=== PATIENT | female | born 1975 | race Two or more races ===

== ENCOUNTER 2025-03-08 20:55 | Emergency (ER) | payer MEDICAID ==
[~2025-03-08] VITALS: Ht 162.6 cm; Wt 63.5 kg
[2025-03-08] MEDS ORDERED: HYDROCODONE/APAP 5/325MG TABLET ONE (22:22)
[2025-03-08] MEDS: HYDROCODONE/APAP 5/325MG TABLET PO ONE (22:23)
[2025-03-08 23:47] VITALS: BP 118/74; TEMP 98; O2SAT 99
== END 2025-03-08 23:47 | disposition home or self-care (01) ==
LOC: ER 21:04
DX: S39.012A Strain of muscle, fascia and tendon of lower back, initial encounter (principal); M79.7 Fibromyalgia; Z91.041 Radiographic dye allergy status; V89.2XXA Person injured in unspecified motor-vehicle accident, traffic, initial encounter; Y93.89 Activity, other specified; Y92.410 Unspecified street and highway as the place of occurrence of the external cause; Y99.8 Other external cause status
CPT/HCPCS: 72131-TC; 73502